=== PATIENT | male | born 1955 | race Caucasian/White ===

== ENCOUNTER 2016-11-21 09:44 | Outpatient (CLI) | payer OTHER | END 2016-11-21 09:45 | disposition home or self-care (01) | DX: M25.559 Pain in unspecified hip (principal); N31.2 Flaccid neuropathic bladder, not elsewhere classified ==

== ENCOUNTER 2016-11-21 10:45 | Outpatient (CLI) | payer OTHER | END 2016-11-21 10:46 | disposition home or self-care (01) | DX: M25.559 Pain in unspecified hip (principal); N31.2 Flaccid neuropathic bladder, not elsewhere classified ==

== ENCOUNTER 2016-11-27 13:04 | Outpatient (CLI) | payer OTHER ==
[2016-11-27 19:11] LABS: BASOPHILS % (AUTO) 0.5 %; EOSINOPHILS % (AUTO) 0.5 %; HCT - HEMATOCRIT 39.6 % (42.0-52.0); HGB - HEMOGLOBIN 13.5 g/dL (14.0-18.0); LYMPHOCYTES # (AUTO) 1.5 10^3/uL (1.5-3.5); LYMPHOCYTES % (AUTO) 35.5 %; MEAN CORPUSCULAR HEMOGLOBIN 33.9 pg (27.0-31.0); MEAN CORPUSCULAR HGB CONC 34.2 g/dL (32.0-36.0); MEAN CORPUSCULAR VOLUME 99.3 fL (80.0-94.0); MEAN PLATELET VOLUME 7.6 fL (7.4-11.4); MONOCYTES # (AUTO) 0.3 10^3/uL (0.0-1.0); MONOCYTES % (AUTO) 8.1 %; NEUTROPHILS # (AUTO) 2.3 10^3/uL (1.5-6.6); NEUTROPHILS % (AUTO) 55.4 %; NUCLEATED RED BLOOD CELLS AUTO 0.1 /100WBC; RED BLOOD COUNT 3.99 10^6/uL (4.70-6.10); RED CELL DISTRIBUTION WIDTH 13.1 % (12.0-15.0); UNCORRECTED WHITE BLOOD COUNT 4.1 x10^3/uL; WHITE BLOOD COUNT 4.1 x10^3/uL (4.8-10.8)
[2016-11-27 19:33] LABS: IRON 98 ug/dL (45-182); TOTAL IRON BINDING CAPACITY 328 ug/dL (250-450); TRANSFERRIN 234 mg/dL (180-329)
== END 2016-11-27 13:05 | disposition home or self-care (01) ==
LOC: LAB.WCP 13:04
PROVIDERS: ATTEND Physician Assistant Medical
DX: D64.9 Anemia, unspecified (principal); D72.819 Decreased white blood cell count, unspecified
CPT/HCPCS: 36415; 82728; 83540; 84466; 85025; 86803; 87389

== ENCOUNTER 2017-01-01 08:00 | Outpatient (CLI) | payer OTHER | END 2017-01-01 08:01 | disposition home or self-care (01) | LOC: LAB.WCP 08:00 | PROVIDERS: ATTEND Physician Assistant Medical | DX: D64.9 Anemia, unspecified (principal) | CPT/HCPCS: 36415; 82607; 82746; 84425 ==

== ENCOUNTER 2022-04-12 08:49 | Day surgery (SDC) | payer MEDICARE, OTHER ==
[~2022-04-12 08:49] MED LIST: PROPOFOL 500 MG/50 ML 500 MG/50 ML VIAL ONE
[2022-04-12] MEDS ORDERED: LACTATED RINGERS 1,000 ML IV ONE ×2 (08:56→11:26)
--- NOTE | 2022-04-12 09:34 | ANESTHESIA ---
Pre-Anesthesia VS, & Labs - Diagnosis positive cologaurd - Procedure colonoscopy Vital Signs: Temp Pulse Resp BP Pulse Ox O2 Flow Rate 36.7 C 58 L 16 137/85 H 100 0 04/12/22 08:56 04/12/22 08:56 04/12/22 08:56 04/12/22 08:56 04/12/22 08:56 04/12/22 08:56 Height: 5 ft 6 in Weight (kg): 69.1 kg Body Mass Index: 24.5 BMI Classification: Normal - NPO >8 hours Home Medications and Allergies Multivitamin [Multi-Day Vitamins] 1 each PO DAILY 10/29/12 Allergies/Adverse Reactions: Allergies Allergy/AdvReac Type Severity Reaction Status Date / Time No Known Drug Allergies Allergy Verified 10/29/12 15:01 Anes History & Medical History - Anesthetic History Anesthesia Complications: reports: No previous complications Family history of Anesthesia Complications: Denies Family history of Malignant Hyperthermia: Denies - Medical History Cardiovascular: reports: None Pulmonary: reports: None Gastrointestinal: reports: None Urinary: reports: Other (Atonic Bladder) Neuro: reports: None, Other (Glaucoma) Musculoskeletal: reports: None Endocrine/Autoimmune: reports: None Skin: reports: None Smoking Status: Never smoker Psychosocial: reports: No issues indicated History of Cancer?: No - Surgical History General: reports: Colonoscopy Urologic: reports: Bladder surgery Exam General: Alert, Oriented x3, Cooperative, No acute distress Dental: WNL Mouth Openin Fingerbreadth Neck Mobility: Normal Mallampati classification: I Thyromental Distance: 4-6 cm Cardiovascular: Regular rate Mental/Cognitive Status: Alert/Oriented X3, Normal for patient Cognitive Status: Within normal limits Plan Anesthesia Type: General, Total IV Consent for Procedure(s) Verified and Reviewed: Yes Code Status: Attempt Resuscitation ASA classification: 2-Mild systemic disease Is this case an emergency?: No
[2022-04-12] MEDS ORDERED: SIMETHICONE 40 MG/0.6 ML 30 ML BOTTLE PO ONE (10:00)
[2022-04-12] MEDS ORDERED: ePHEDrine 50 MG/ML VIAL IVP ONE (10:00)
[2022-04-12] MEDS ORDERED: ONDANSETRON 4 MG/2 ML VIAL ONE (10:02)
[2022-04-12] MEDS ORDERED: PROPOFOL 200 MG/20 ML VIAL IVP ONE (10:05)
[2022-04-12] MEDS ORDERED: fentaNYL 100 MCG/2 ML VIAL ONE (10:17)
[2022-04-12] MEDS ORDERED: PROPOFOL 500 MG/50 ML 500 MG/50 ML VIAL ONE (10:32)
[2022-04-12] MEDS ORDERED: METOPROLOL 5 MG/5 ML VIAL IVP ONE (10:41)
--- NOTE | 2022-04-12 11:33 | CONSULTATION NOTE ---
Consultation Report: Patient here for colonscopy. During procedure, rhythm changed to afib with rate 110-120. Patient was diaphoretic. 5 mg metoprolol given IV and after 10 mins, rhythm converted to second degree heart block (see intraop ecg). Vital signs remained stable throughout case. Discussed case with hospitalist Dr. Arriaga and she recommended taking patient to ER for work up. ER is unable at this time to take patient due to limited staffing. Case finished and patient taken to recovery. Lab, EKG and chest xray obtained. After several hours of monitoring, patient had no further episodes of arrhythmia and remained in sinus bradycardia. Vital signs were normal. ECG in recovery showed sinus bradycardia with no ectopy. All lab work WNL including repeat troponin. Discussed case with Dr. Lacy and he agrees patient is safe to discharge home. Recommend patient follow up with his PCP and return to ER if any further episodes occur.
--- NOTE | 2022-04-12 11:57 | XRAY Report ---
PROCEDURE: Chest 1 View X-Ray INDICATIONS: new onset afib TECHNIQUE: One view of the chest was acquired. COMPARISON: None. FINDINGS: Surgical changes and devices: None. Lungs and pleura: No pleural effusions or pneumothorax. Lungs are clear. Mediastinum: Mediastinal contours appear normal. Heart size is normal. Bones and chest wall: No suspicious bony lesions. Overlying soft tissues appear unremarkable. IMPRESSION: No acute cardial pulmonary findings. Reviewed by: Vandana Everett MD on 04/12/2022 11:56 AM PDT Approved by: Vandana Everett MD on 04/12/2022 11:56 AM PDT Station ID: [id number]
[2022-04-12 12:14] LABS: BASOPHILS % (AUTO) 0.5 %; EOSINOPHILS % (AUTO) 0.3 %; HCT - HEMATOCRIT 35.7 % (42.0-52.0); HGB - HEMOGLOBIN 12.3 g/dL (14.0-18.0); LYMPHOCYTES # (AUTO) 0.9 10^3/uL (1.5-3.5); LYMPHOCYTES % (AUTO) 21.6 %; MEAN CORPUSCULAR HEMOGLOBIN 33.4 pg (27.0-31.0); MEAN CORPUSCULAR HGB CONC 34.5 g/dL (32.0-36.0); MEAN PLATELET VOLUME 9.1 fL (7.4-11.4); MONOCYTES # (AUTO) 0.2 10^3/uL (0.0-1.0); MONOCYTES % (AUTO) 6.1 %; NEUTROPHILS # (AUTO) 2.8 10^3/uL (1.5-6.6); NEUTROPHILS % (AUTO) 71.2 %; PLT - PLATELET COUNT 274 10^3/uL (130-450); RED BLOOD COUNT 3.68 10^6/uL (4.70-6.10); RED CELL DISTRIBUTION WIDTH 12.9 % (12.0-15.0); WHITE BLOOD COUNT 3.9 x10^3/uL (4.8-10.8)
[2022-04-12 12:20] LABS: INR 1.1 (0.8-1.2)
[2022-04-12 12:27] LABS: PARTIAL THROMBOPLASTIN TIME 31.4 secs (24.9-33.3)
[2022-04-12 12:30] LABS: ALBUMIN 3.8 g/dL (3.2-5.5); ALBUMIN/GLOBULIN RATIO 1.5 (1.0-2.2); BILIRUBIN,TOTAL 1.5 mg/dL (0.2-1.0); CALCIUM 8.6 mg/dL (8.5-10.3); CREATININE 0.7 mg/dL (0.6-1.2); POTASSIUM 3.8 mmol/L (3.5-5.0); TOTAL PROTEIN 6.4 g/dL (6.7-8.2)
[2022-04-12 15:33] VITALS: BP 116/76
--- NOTE | 2022-04-12 15:46 | ANESTHESIA POST OP EVALUATION ---
Anesthesia Post Eval - Post Anesthesia Eval Vitals: Last Vital Signs Temp 36.9 C 04/12/22 15:03 Pulse 60 04/12/22 15:28 Resp 16 04/12/22 15:28 BP 116/76 04/12/22 15:28 Pulse Ox 100 04/12/22 15:28 O2 Flow Rate 0 04/12/22 08:56 CV Function Including HR & BP: Stable Pain Control: Satisfactory Nausea & Vomiting: Negative Mental Status: Baseline Respiratory Status: Airway Patent Hydration Status: Satisfactory Anesthesia Complications: None
== END 2022-04-12 08:50 | disposition home or self-care (01) ==
LOC: SDS 08:49
PROVIDERS: ATTEND Surgery
DX: R19.5 Other fecal abnormalities (principal); K57.30 Diverticulosis of large intestine without perforation or abscess without bleeding; I48.91 Unspecified atrial fibrillation; I44.1 Atrioventricular block, second degree; R00.1 Bradycardia, unspecified
CPT/HCPCS: 36415; 45378; 71045; 80053; 84484; 85025; 85610; 85730; 93005; A9270; J7120

== ENCOUNTER 2023-06-02 09:28 | Outpatient (CLI) | payer MEDICARE, OTHER ==
[2023-06-02 12:48] LABS: BASOPHILS % (AUTO) 1.2 %; EOSINOPHILS % (AUTO) 1.2 %; HCT - HEMATOCRIT 39.3 % (42.0-52.0); HGB - HEMOGLOBIN 13.1 g/dL (14.0-18.0); LYMPHOCYTES # (AUTO) 1.5 10^3/uL (1.5-3.5); LYMPHOCYTES % (AUTO) 45.5 %; MEAN CORPUSCULAR HEMOGLOBIN 32.9 pg (27.0-31.0); MEAN CORPUSCULAR HGB CONC 33.3 g/dL (32.0-36.0); MEAN CORPUSCULAR VOLUME 98.7 fL (80.0-94.0); MEAN PLATELET VOLUME 9.8 fL (7.4-11.4); MONOCYTES # (AUTO) 0.5 10^3/uL (0.0-1.0); MONOCYTES % (AUTO) 15.7 %; NEUTROPHILS # (AUTO) 1.2 10^3/uL (1.5-6.6); NEUTROPHILS % (AUTO) 36.1 %; PLT - PLATELET COUNT 285 10^3/uL (130-450); RED BLOOD COUNT 3.98 10^6/uL (4.70-6.10); RED CELL DISTRIBUTION WIDTH 12.8 % (12.0-15.0); WHITE BLOOD COUNT 3.3 x10^3/uL (4.8-10.8)
[2023-06-02 13:10] LABS: ALBUMIN 4.3 g/dL (3.2-5.5); ALBUMIN/GLOBULIN RATIO 1.5 (1.0-2.2); ALKALINE PHOSPHATASE 56 IU/L (42-121); ALT ALANINE AMINOTRANSFERASE 13 IU/L (10-60); AST ASPARTATE AMINOTRANSFERASE 23 IU/L (10-42); BILIRUBIN,TOTAL 0.6 mg/dL (0.2-1.0); BUN - BLOOD UREA NITROGEN 11 mg/dL (6-20); CARBON DIOXIDE - CO2 31 mmol/L (21-32); CHLORIDE 100 mmol/L (101-111); CHOL/HDL RATIO 2.1 (<5.0); CHOLESTEROL 178 mg/dL; CREATININE 0.8 mg/dL (0.6-1.3); GFR - MDRD 96 (>89); GLUCOSE 76 mg/dL (74-104); HDL CHOLESTEROL 85 mg/dL; LDL CHOLESTEROL,CALCULATED 84 mg/dL; POTASSIUM 4.9 mmol/L (3.5-4.5); SODIUM 137 mmol/L (135-145); TOTAL PROTEIN 7.1 g/dL (6.4-8.9); TRIGLYCERIDES 44 mg/dL (48-352); VLDL CHOLESTEROL 9 mg/dL
[2023-06-02 13:17] LABS: THYROID STIMULATING HORMONE 1.42 uIU/mL (0.34-5.60)
== END 2023-06-02 09:29 | disposition home or self-care (01) ==
LOC: LAB.N 09:28
PROVIDERS: ATTEND Nurse Practitioner
DX: R53.83 Other fatigue (principal); Z13.220 Encounter for screening for lipoid disorders; Z12.5 Encounter for screening for malignant neoplasm of prostate
CPT/HCPCS: 36415; 80053; 80061; 84443; 85025; G0103; 83721; 84153